=== PATIENT | female | born 1990 | race Hispanic/Latino ===

== ENCOUNTER 2021-08-15 15:22 | Emergency (ER) | payer BC ==
[~2021-08-15] VITALS: Ht 149.9 cm; Wt 65.8 kg
[2021-08-15 15:55] LABS: BASOPHILS # (AUTO) 0.1 (0.0-0.1); BASOPHILS % 0.6 % (0.0-1.0); EOSINOPHILS # (AUTO) 0.2 (0.0-0.4); HEMATOCRIT 40.4 % (34.2-44.1); HEMOGLOBIN 13.5 g/dL (12.0-16.0); LYMPHOCYTES # (AUTO) 2.1 (1.0-3.2); LYMPHOCYTES % 25.2 % (18.0-39.1); MEAN CORPUSCULAR HGB CONC 33.4 g/dL (31-35); MEAN CORPUSCULAR VOLUME 92.9 fL (81-99); MONOCYTES # (AUTO) 0.5 (0.2-0.8); NEUTROPHILS # (AUTO) 5.5 (2.1-6.9); PLATELET COUNT 238 x10e3/uL (140-360); RED BLOOD COUNT 4.35 x10e6/uL (3.6-5.1); RED CELL DISTRIBUTION WIDTH 13.5 % (11.7-14.4)
== END 2021-08-15 19:10 | disposition home or self-care (01) ==
LOC: ER 16:00
DX: O02.1 Missed abortion (principal)
CPT/HCPCS: 36415; 76801; 84702; 85025; 86900; 99284

== ENCOUNTER 2024-11-25 17:37 | Emergency (ER) | payer BC ==
[~2024-11-25] VITALS: Ht 147.3 cm; Wt 65.8 kg
[2024-11-25 17:37] VITALS: TEMP 98.2
[~2024-11-25 17:37] MED LIST: DICYCLOMINE HCL20 MG PO; ONDANSETRON ODT4 MG PO
[2024-11-25] MEDS ORDERED: SODIUM CHLORIDE FLUSH 10 ML SYR INJ PRN (18:15)
[2024-11-25 18:21] LABS: BASOPHILS % 0.6 % (0.0-1.0); EOSINOPHILS % 2.0 % (0.0-6.0); LYMPHOCYTES % 33.0 % (18.0-39.1); MONOCYTES % 8.5 % (4.4-11.3); NEUTROPHILS % 55.7 % (38.7-80.0); RED CELL DISTRIBUTION WIDTH 11.9 % (11.7-14.4)
[2024-11-25 18:33] LABS: EST GLOMERULAR FILTRATION RATE 116.0 ML/MIN (>=60)
[2024-11-25 20:00] VITALS: PULSE 83; RESP 15
[2024-11-25 20:22] VITALS: BP 100/67; PULSE 83; RESP 15; TEMP 98.7; O2SAT 95
== END 2024-11-25 20:20 | disposition home or self-care (01) ==
LOC: ER 17:54
DX: R06.02 Shortness of breath (principal); R07.89 Other chest pain
CPT/HCPCS: 36415; 71045; 80053; 84484; 85025; 93005; 99284